=== PATIENT | female | born 1950 | race Caucasian/White ===

== ENCOUNTER → 2016-12-30 | Outpatient (CLI) | payer OTHER, MEDICARE ==
[~2016-12-30] MED LIST: ADVIL200 M1; ANTIVERT PO; ASPIRIN PO; ASPIRIN81 M2 PO; ATIVAN PO; CALCIUM 500 + D1 TAB PO; CERTAGEN PO; COATED ASPIRIN325 M1 PO; FISH OIL 1,0001 CAP PO; FLAX SEED OIL1000 MG PO; GLUCOSAMINE PO; NO MEDICATIONS; NORCO 10/3251 TAB PO; PRILOSEC PO; TRAZODONE; VIT B-12 PO; VIT E PO
--- NOTE | ~2016-12-30 | BD1 ---
[facility] A Service of [facility] RADIOLOGY TEXT RESULTS PATIENT: MAINOR REYNAGA LOCATION: [facility] : 50 UNIT #: [id number] AGE: [address]: Dian Peters MD SEX: F ORDER DR: [id number] [facility] [address] [place], [place] [address] [id number] O MR#: [id number] Acc #: [id number] NAME: MAINOR REYNAGA : 1950 SEX: F STUDY DATE/TIME: 12/30/2016 10:00 UNIT: [facility] ROOM: STUDY DESCRIPTION: BD Dexa Bone Dens 1+ Site Attending Physician: Dian Peters M.D. Ordering Physician: Dian Peters M.D. Primary Care Physician: Dian Peters M.D. MEDICAL IMAGING REPORT This report is preliminary unless electronic signature is present EXAM DXA scan, 12/30/2016 HISTORY Status post menopause with no hormone replacement therapy. Osteopenia. Smoking history. Right knee replacement. FINDINGS Bone mineral density in the lumbar spine from L1-L4 was 1.134 g/cm2 which is 0.8 standard deviations above the mean when compared to the young adult reference population which is within the range of normal. This is 2.6 standard deviations above the mean when compared to the age-matched population. Compared with 04/12/2009 there has been a decrease in bone mineral density in the lumbar spine of 3.5%. Bone mineral density in the left femoral neck was 0.932 g/cm2 which is 0.8 standard deviations above the mean when compared to the young adult reference population which is within the range of normal. This is 2.3 standard deviations above the mean when compared to the age-matched population. Compared with 04/12/2009 there has been an increase in bone mineral density in the left hip of 0.8%. IMPRESSION Bone mineral density in the lumbar spine and left hip within the range of normal. Compared with 04/12/2009 there has been a decrease in bone mineral density in the lumbar spine and an increase in bone mineral density in the left hip. Dictated by... Gabriel Jimenez M.D. THIS IS AN ELECTRONICALLY VERIFIED REPORT Gabriel Jimenez M.D. at 12/31/2016 8:07 AM [facility] A Service of [facility] & [facility] RADIOLOGY TEXT RESULTS PATIENT: MAINOR REYNAGA LOCATION: [facility] #: [id number] : [birth year] UNIT #: [id number] AGE: [address]: Dian Peters MD SEX: F ORDER DR: Mickey TD: 12/30/2016 13:05 JOB #: [id number] MEDICAL IMAGING REPORT Page 1 of 1 COPY
--- NOTE | ~2016-12-30 | MY11 ---
[facility] A Service of [facility] RADIOLOGY TEXT RESULTS PATIENT: MAINOR REYNAGA LOCATION: [facility] : [birth year] UNIT #: [id number] AGE: [address]: Dian Peters MD SEX: F ORDER DR: [id number] [place] [id number] [facility]. [place], [place] [address] [id number] O MR#: [id number] Acc #: [id number] NAME: MAINOR REYNAGA : 1950 SEX: F STUDY DATE/TIME: 12/30/2016 9:57 UNIT: [facility] ROOM: STUDY DESCRIPTION: MY Mammogram Screening Dig [place] Attending Physician: Dina Peters M.D. Ordering Physician: Dian Peters M.D. Primary Care Physician: Dian Peters M.D. MEDICAL IMAGING REPORT This report is preliminary unless electronic signature is present EXAM Bilateral digital screening mammogram with CAD Date: 12/30/2016 HISTORY 66-year-old female with history of right breast lumpectomy. No documented personal history of breast cancer. Family history of breast cancer in aunt. No current complaints. COMPARISON Bilateral screening mammogram 09/17/2016, 07/17/2014 FINDINGS CC and MLO views were obtained of each breast utilizing digital technique and reviewed an FDA-approved CAD device. Breast parenchyma is mildly fat replaced. A linear marker was placed over the upper outer right breast noting surgical scar. Intramammary lymph node in the upper outer right breast, unchanged. No new or suspicious nodule, architectural distortion or clustered microcalcification is seen. Fibronodular density in subareolar right breast slightly laterally positioned on the CC view is unchanged since 2013, in keeping with benign finding. IMPRESSION BIRADS: 2. Benign findings. Patients over the age of 40 are entered into a reminder system with target due date for the next mammogram. A result letter will also be sent to the patient. Routine bilateral screening mammogram is recommended in year. Dictated by... [facility] A Service [facility] RADIOLOGY TEXT RESULTS PATIENT: MAINOR REYNAGA LOCATION: [facility] : 50 UNIT #: [id number] AGE: [address]: Dian Peters MD SEX: F ORDER DR: Ada Buckley M.D. THIS IS AN ELECTRONICALLY VERIFIED REPORT Ada Buckley M.D. at 12/31/2016 7:03 AM ADALGISA/yaneli TD: 12/30/2016 12:29 JOB #: [id number] MEDICAL IMAGING REPORT Page 1 of 1 COPY
== END | disposition home or self-care (01) ==
LOC: CWCC 09:34
DX: Z13.820 Encounter for screening for osteoporosis (principal); Z12.31 Encounter for screening mammogram for malignant neoplasm of breast; Z80.3 Family history of malignant neoplasm of breast; Z98.890 Other specified postprocedural states
CPT/HCPCS: 77080; G0202